=== PATIENT | male | born 1975 | race Caucasian/White ===

== ENCOUNTER 2022-04-18 04:13 | Day surgery (SDC) | payer BC, OTHER ==
[2022-04-15 16:35] VITALS: BMI 24.9
[2022-04-18] MEDS ORDERED: ONDANSETRON 4 MG/2 ML VIAL ONE (07:16)
[2022-04-18] MEDS ORDERED: DEXAMETHASONE SOD PHOSPHATE 4 MG/1 ML VIAL ONE (07:16)
[2022-04-18] MEDS ORDERED: PROPOFOL 20 ML ONE (07:16)
[2022-04-18] MEDS ORDERED: MIDAZOLAM HCL 2 MG/2 ML SINGLE DOSE VIAL ONE ×3 (07:16→08:01)
[2022-04-18] MEDS ORDERED: LIDOCAINE HCL/PF 2% SDV 5ML VIAL ONE (07:16)
[2022-04-18] MEDS ORDERED: SUCCINYLCHOLINE CHLORIDE 200 MG/10 ML SYRINGE ONE (07:19)
[2022-04-18] MEDS ORDERED: BUPIVACAINE LIPOSOME/PF (EXPAREL) 266 MG/20 ML VIAL ONE (07:50)
[2022-04-18] MEDS ORDERED: BUPIVACAINE HCL/PF 0.5% (5MG/ML) 10 ML VIAL ONE (07:50)
[2022-04-18] MEDS ORDERED: ceFAZolin SODIUM 1 GM VIAL IVPB ONE (08:27)
[2022-04-18] MEDS ORDERED: ceFAZolin SODIUM 1 GM VIAL ONE ×2 (08:28→11:29)
[2022-04-18] MEDS ORDERED: ceFAZolin 2 GRAM PREMIX BAG IVPB ONE (09:33)
[2022-04-18] MEDS ORDERED: ONDANSETRON 4 MG/2 ML VIAL IVPUSH PRN (10:45)
[2022-04-18] MEDS ORDERED: LACTATED RINGERS SOLUTION 1,000 ML IV SCH (10:45)
[2022-04-18] MEDS ORDERED: oxyCODONE HCL 5 MG TABLET PO PRN (10:45)
[2022-04-18 11:22] VITALS: TEMP 97.5
[2022-04-18 12:15] VITALS: RESP 20
[2022-04-18] MEDS ORDERED: oxyCODONE HCL 10 MG SUSTAINED ACTING TABLET ONE (13:09)
[2022-04-18] MEDS ORDERED: oxyCODONE HCL 5 MG TABLET PO ONE (13:14)
[2022-04-18 16:10] VITALS: BP 120/74; PULSE 70
== END 2022-04-18 16:30 | disposition home or self-care (01) ==
LOC: JASU-SURG 04:13
PROVIDERS: ATTEND Orthopaedic Surgery
PROC: 0LUQ4JZ Supplement Right Knee Tendon with Synthetic Substitute, Percutaneous Endoscopic Approach (ICD-10-PCS; principal; 2022-04-18 08:00)
DX: S83.511A Sprain of anterior cruciate ligament of right knee, initial encounter (principal); X58.XXXA Exposure to other specified factors, initial encounter; Y93.9 Activity, unspecified; Y92.9 Unspecified place or not applicable; Y99.9 Unspecified external cause status
CPT/HCPCS: 29888; C1713; 94760

== ENCOUNTER 2022-04-24 14:07 | Emergency (ER) | payer OTHER ==
[2022-04-24 14:14] VITALS: BMI 24.9
[2022-04-24 16:10] LABS: HEMATOCRIT 38.6 % (35.4-49); HEMOGLOBIN 12.9 GM/dL (11.7-16.9); MCH 30.1 pg (25.7-33.7); MCHC 33.4 g/dl (32.0-35.9); MEAN CELL VOLUME 90.2 fl (80-96); MEAN PLT VOLUME 8.8 fl (7.5-11.1); PLATELET COUNT 237 10^3/uL (134-434); RBC 4.28 M/mm3 (4.00-5.60); RDW 13.1 % (11.9-15.9); WHITE BLOOD COUNT 10.6 K/mm3 (4.0-10.0)
[2022-04-24 17:32] LABS: CALCIUM 9.6 mg/dL (8.5-10.1)
[2022-04-24 17:33] LABS: ALBUMIN 3.6 g/dl (3.4-5.0); BLOOD UREA NITROGEN 18.6 mg/dL (7-18)
[2022-04-24 17:36] LABS: CREATININE 1.2 mg/dL (0.55-1.3)
[2022-04-24 17:37] LABS: TOT PROT 7.9 g/dl (6.4-8.2)
[2022-04-24 17:38] LABS: BILIRUBIN,TOTAL 0.7 mg/dL (0.2-1)
[2022-04-24] MEDS ORDERED: APIXABAN 5 MG TABLET PO ONE (18:39)
[2022-04-24 19:05] VITALS: BP 137/75; PULSE 78; RESP 18; TEMP 98.1
[2022-04-24] MEDS ORDERED: APIXABAN 5 MG TABLET ONE (19:12)
== END 2022-04-24 19:29 | disposition home or self-care (01) ==
LOC: JER 14:07
DX: I82.441 Acute embolism and thrombosis of right tibial vein (principal)
CPT/HCPCS: 36415; 80053; 85025; 99283-25

== ENCOUNTER 2022-04-25 20:57 | Observation (INO) | payer OTHER ==
[2022-04-25 21:10] VITALS: RESP 18; BMI 25.4
[2022-04-25] MEDS ORDERED: ENOXAPARIN NA (PORCINE) 100 MG/1 ML DISP.SYRIN SQ ONE ×2 (22:26→22:57)
[2022-04-25 23:30] LABS: BASO % 0.4 % (0-2.0); EOS % 2.1 % (0-4.5); HEMATOCRIT 40.2 % (35.4-49); HEMOGLOBIN 13.5 GM/dL (11.7-16.9); LYMPH % 15.1 % (8-40); MCH 30.2 pg (25.7-33.7); MCHC 33.5 g/dl (32.0-35.9); MEAN PLT VOLUME 8.5 fl (7.5-11.1); NEUT % 73.4 % (42.8-82.8); PLATELET COUNT 312 10^3/uL (134-434); RBC 4.47 M/mm3 (4.00-5.60); RDW 13.1 % (11.9-15.9); WHITE BLOOD COUNT 9.8 K/mm3 (4.0-10.0)
[2022-04-25 23:38] LABS: INR 1.32 (0.83-1.09); PROTHROMBIN TIME (PATIENT) 15.2 SEC (9.7-13.0)
[2022-04-25 23:41] LABS: ACTIVATED PTT 34.7 SECONDS (25.2-36.5)
[2022-04-25 23:55] LABS: ALBUMIN 3.6 g/dl (3.4-5.0); CALCIUM 9.6 mg/dL (8.5-10.1)
[2022-04-25 23:58] LABS: CREATININE 1.2 mg/dL (0.55-1.3)
[2022-04-26] LABS: BILIRUBIN,TOTAL 0.6 mg/dL (0.2-1); TOT PROT 8.3 g/dl (6.4-8.2)
[2022-04-26 07:09] LABS: BASO % 0.4 % (0-2.0); EOS % 1.8 % (0-4.5); HEMATOCRIT 36.6 % (35.4-49); HEMOGLOBIN 12.7 GM/dL (11.7-16.9); MCH 30.8 pg (25.7-33.7); MCHC 34.6 g/dl (32.0-35.9); MEAN CELL VOLUME 89.1 fl (80-96); MEAN PLT VOLUME 8.7 fl (7.5-11.1); MONO % 8.3 % (3.8-10.2); NEUT % 68.5 % (42.8-82.8); PLATELET COUNT 316 10^3/uL (134-434); RBC 4.11 M/mm3 (4.00-5.60); RDW 13.1 % (11.9-15.9); WHITE BLOOD COUNT 9.3 K/mm3 (4.0-10.0)
[2022-04-26 07:18] LABS: INR 1.4 (0.83-1.09); PROTHROMBIN TIME (PATIENT) 16.2 SEC (9.7-13.0)
[2022-04-26 07:23] LABS: CALCIUM 9.1 mg/dL (8.5-10.1)
[2022-04-26 07:24] LABS: ALBUMIN 3.5 g/dl (3.4-5.0); BLOOD UREA NITROGEN 19.5 mg/dL (7-18)
[2022-04-26 07:27] LABS: CREATININE 1.3 mg/dL (0.55-1.3)
[2022-04-26 07:28] LABS: BILIRUBIN,TOTAL 0.8 mg/dL (0.2-1)
[2022-04-26 07:29] LABS: TOT PROT 7.7 g/dl (6.4-8.2)
[2022-04-26] MEDS ORDERED: ENOXAPARIN 120 MG, ENOXAPARIN 30 MG SQ SCH (10:00)
[2022-04-26] MEDS ORDERED: ENOXAPARIN NA (PORCINE) 120 MG/0.8 ML DISP.SYRIN SQ SCH (10:00)
[2022-04-26] MEDS ORDERED: APIXABAN 5 MG TABLET PO SCH ×2 (10:00→22:00)
[2022-04-26 10:43] VITALS: BP 127/76; PULSE 95; TEMP 97.8
[2022-04-26] MEDS ORDERED: MELATONIN 5 MG TABLETS PO SCH (22:00)
[2022-04-27] MEDS ORDERED: APIXABAN 5 MG TABLET PO SCH (10:00)
[2022-05-03] MEDS ORDERED: APIXABAN 5 MG TABLET PO SCH (22:00)
[2022-05-04] MEDS ORDERED: APIXABAN 5 MG TABLET PO SCH (10:00)
== END 2022-04-26 11:02 | disposition home or self-care (01) ==
LOC: JER 20:57 → JERBED 04-26 00:17 → INTOOBSV 04-26 00:17
PROVIDERS: ADMIT Internal Medicine; ATTEND Nurse Practitioner Acute Care
PROC: 3E023GC Introduction of Other Therapeutic Substance into Muscle, Percutaneous Approach (ICD-10-PCS; principal; 2022-04-26)
DX: Z76.0 Encounter for issue of repeat prescription (principal); Z29.8 Encounter for other specified prophylactic measures; Z98.890 Other specified postprocedural states; M25.561 Pain in right knee
CPT/HCPCS: 0241U-QW; 36415; 80053; 85025; 85610; 85730; 86850; 86900; 86901; 93005; 93010; 99285-25; G0378

== ENCOUNTER 2022-06-25 05:23 | Day surgery (SDC) | payer OTHER ==
[2022-06-23 10:41] VITALS: BMI 23.7
[~2022-06-25 05:23] MED LIST: BUPIVACAINE HCL/PF 0.5% (5MG/ML) 10 ML VIAL NR ONE; ceFAZolin SODIUM 1 GM VIAL IVPB ONE
[2022-06-25] MEDS ORDERED: BUPIVACAINE HCL/PF 0.5% (5MG/ML) 10 ML VIAL ONE (10:09)
[2022-06-25] MEDS ORDERED: PROPOFOL 40 ML ONE (11:29)
[2022-06-25] MEDS ORDERED: MIDAZOLAM HCL 2 MG/2 ML SINGLE DOSE VIAL ONE (11:29)
[2022-06-25] MEDS ORDERED: SUCCINYLCHOLINE CHLORIDE 200 MG/10 ML SYRINGE ONE (11:29)
[2022-06-25] MEDS ORDERED: ONDANSETRON 4 MG/2 ML VIAL ONE (11:41)
[2022-06-25] MEDS ORDERED: DEXAMETHASONE SOD PHOSPHATE 4 MG/1 ML VIAL ONE (11:41)
[2022-06-25] MEDS ORDERED: ONDANSETRON 4 MG/2 ML VIAL IVPUSH PRN (11:56)
[2022-06-25] MEDS ORDERED: oxyCODONE HCL 5 MG TABLET PO PRN (11:56)
[2022-06-25] MEDS ORDERED: KETOROLAC TROMETHAMINE 30 MG/1 ML VIAL IVPUSH ONE (11:57)
[2022-06-25] MEDS ORDERED: LACTATED RINGERS SOLUTION 1,000 ML IV SCH (12:00)
[2022-06-25 13:56] VITALS: RESP 18; TEMP 97.8
[2022-06-25] MEDS ORDERED: oxyCODONE HCL 5 MG TABLET ONE (14:07)
[2022-06-25 15:16] VITALS: BP 140/72; PULSE 71
== END 2022-06-25 14:50 | disposition home or self-care (01) ==
LOC: JASU-SURG 05:23
PROVIDERS: ATTEND Orthopaedic Surgery
PROC: 0SNCXZZ Release Right Knee Joint, External Approach (ICD-10-PCS; principal; 2022-06-25 11:30)
DX: M25.661 Stiffness of right knee, not elsewhere classified (principal)
CPT/HCPCS: 94010; 94760

== ENCOUNTER 2023-02-11 04:08 | Day surgery (SDC) | payer OTHER ==
[2023-02-10 14:18] VITALS: BMI 24.9
[~2023-02-11 04:08] MED LIST changes: -BUPIVACAINE HCL/PF 0.5% (5MG/ML) 10 ML VIAL NR ONE; +LIDOCAINE HCL 1%, 10 MG/ML (20ML VIAL) INF ONE; -ceFAZolin SODIUM 1 GM VIAL IVPB ONE
[2023-02-11 10:28] VITALS: RESP 16; TEMP 97.8
[2023-02-11] MEDS ORDERED: LIDOCAINE HCL 1%, 10 MG/ML (20ML VIAL) INF ONE (11:06)
[2023-02-11 11:43] VITALS: BP 120/78; PULSE 71
== END 2023-02-11 12:00 | disposition home or self-care (01) ==
LOC: JASU-SURG 04:08
PROVIDERS: ATTEND Orthopaedic Surgery
PROC: 015D3ZZ Destruction of Femoral Nerve, Percutaneous Approach (ICD-10-PCS; principal; 2023-02-11 12:00)
DX: M17.11 Unilateral primary osteoarthritis, right knee (principal)